=== PATIENT | female | born 1950 ===

== ENCOUNTER 2018-05-12 07:19 | Outpatient (CLI) | payer OTHER | END 2018-05-12 07:20 | disposition home or self-care (01) | LOC: C.VASC 07:19 | DX: R60.0 Localized edema (principal); I83.813 Varicose veins of bilateral lower extremities with pain ==

== ENCOUNTER 2018-07-06 12:12 | Outpatient (CLI) | payer OTHER | END 2018-07-06 12:13 | disposition home or self-care (01) | LOC: C.CTH 12:13 ==

== ENCOUNTER → 2018-07-24 | Outpatient (CLI) | payer OTHER | LOC: C.MRIC 13:48 | DX: S06.0X0A Concussion without loss of consciousness, initial encounter (principal) ==

== ENCOUNTER 2018-07-26 07:08 | Outpatient (CLI) | payer OTHER | END 2018-07-26 07:09 | disposition home or self-care (01) | LOC: C.CARD 07:08 ==